=== PATIENT | female | born 1970 | race Caucasian/White ===

== ENCOUNTER → 2018-01-18 | Outpatient (CLI) | payer BC ==
[2018-01-18 07:06] LABS: Basophils % (A) 1 %; Eosinophils # (A) 0.1 k/uL (0-0.7); Eosinophils % (A) 4 %; HCT 41.3 % (34.0-46.0); HGB 13.7 gm/dL (11.4-16.0); Lymphocytes # (A) 1.3 k/uL (1.0-4.8); Lymphocytes % (A) 37 %; MCH 31.2 pg (25.0-35.0); MCHC 33.2 g/dL (31.0-37.0); MCV 94.1 fL (80.0-100.0); Mean Platelet Volume 7.6; Monocytes # (A) 0.2 k/uL (0-1.0); Monocytes % (A) 5 %; Neutrophils # (A) 1.7 k/uL (1.3-7.7); Neutrophils % (A) 51 %; Platelet Count 195 k/uL (150-450); RBC 4.39 m/uL (3.80-5.40); RDW 12.8 % (11.5-15.5); WBC 3.4 k/uL (3.8-10.6)
[2018-01-18 07:20] LABS: ALT 45 U/L (9-52); AST 31 U/L (14-36); Albumin 3.9 g/dL (3.5-5.0); Alkaline Phosphatase 51 U/L (38-126); Anion Gap 9 mmol/L; Blood Urea Nitrogen 14 mg/dL (7-17); Calcium 9.1 mg/dL (8.4-10.2); Carbon Dioxide 29 mmol/L (22-30); Chloride 103 mmol/L (98-107); Cholesterol 182 mg/dL (<200); Glucose 91 mg/dL (74-99); HDL Cholesterol 56 mg/dL (40-60); LDL Cholesterol,Calculated 114 mg/dL (0-99); Potassium 4.4 mmol/L (3.5-5.1); Sodium 141 mmol/L (137-145); Total Bilirubin 0.7 mg/dL (0.2-1.3); Total Protein 5.9 g/dL (6.3-8.2); Triglycerides 60 mg/dL (<150)
[2018-01-18 07:33] LABS: T4, Free (Free Thyroxine) 0.74 ng/dL (0.78-2.19)
[2018-01-18 11:59] LABS: Vitamin D 25 Hydroxy 56.7 ng/mL (30.0-100.0)
== END | disposition home or self-care (01) ==
LOC: LABWHC1 06:43
PROVIDERS: ATTEND Nurse Practitioner Family
DX: Z00.00 Encounter for general adult medical examination without abnormal findings (principal); F41.1 Generalized anxiety disorder
CPT/HCPCS: 36415; 80053; 80061; 82306; 82607; 84439; 84443; 85025

== ENCOUNTER → 2018-06-14 | Outpatient (CLI) | payer BC ==
--- NOTE | 2018-06-14 11:52 | MM ---
Reason for exam: screening (asymptomatic). Last mammogram was performed 1 year and 1 month ago. History: Family history of breast cancer in aunt at age 50. Physical Findings: A clinical breast exam by your physician is recommended on an annual basis and results should be correlated with mammographic findings. MG Screening Mammo w CAD Bilateral CC and MLO view(s) were taken. Prior study comparison: May 18, 2017, bilateral MG screening mammo w CAD. April 07, 2016, bilateral MG screening mammo w CAD. There are scattered fibroglandular densities. There is no discrete abnormality. No significant changes when compared with prior studies. ASSESSMENT: Negative, BI-RAD 1 RECOMMENDATION: Routine screening mammogram of both breasts in 1 year.
== END | disposition home or self-care (01) ==
LOC: RADMAMWWP 06:59
PROVIDERS: ATTEND Family Medicine
DX: Z12.31 Encounter for screening mammogram for malignant neoplasm of breast (principal)
CPT/HCPCS: 77067

== ENCOUNTER → 2018-08-17 | Outpatient (CLI) | payer BC ==
[2018-08-17 08:40] LABS: Basophils % (A) 1 %; Eosinophils # (A) 0.2 k/uL (0-0.7); Eosinophils % (A) 4 %; HCT 42.4 % (34.0-46.0); HGB 13.9 gm/dL (11.4-16.0); Lymphocytes # (A) 1.1 k/uL (1.0-4.8); Lymphocytes % (A) 25 %; MCH 31.4 pg (25.0-35.0); MCHC 32.8 g/dL (31.0-37.0); MCV 95.7 fL (80.0-100.0); Mean Platelet Volume 7.5; Monocytes # (A) 0.3 k/uL (0-1.0); Monocytes % (A) 8 %; Neutrophils # (A) 2.6 k/uL (1.3-7.7); Neutrophils % (A) 60 %; Platelet Count 167 k/uL (150-450); RBC 4.43 m/uL (3.80-5.40); RDW 12.9 % (11.5-15.5); WBC 4.3 k/uL (3.8-10.6)
[2018-08-17 16:30] LABS: Albumin 4.1 g/dL (3.80-4.90); Albumin/Globulin Ratio 2.41 (1.20-2.10); Anion Gap 6.4 mmol/L (4.00-12.00); Calcium 8.9 mg/dL (8.7-10.3); Carbon Dioxide 26.6 mmol/L (21.6-31.8); Globulin 1.7 g/dL (1.6-3.3); LDL Cholesterol,Calculated 93.8 mg/dL (0.0-131.0); Potassium 4.3 mmol/L (3.5-5.5); Total Bilirubin 0.4 mg/dL (0.3-1.2); Total Protein 5.8 g/dL (6.2-8.2); VLDL Calculation 13.2 mg/dL (5.00-40.00)
== END ==
LOC: LABWHC1 08:01
PROVIDERS: ATTEND Nurse Practitioner Family
DX: E78.5 Hyperlipidemia, unspecified (principal)
CPT/HCPCS: 36415; 80053; 80061; 85025

== ENCOUNTER → 2019-03-15 | Outpatient (CLI) | payer BC ==
[2019-03-15 08:39] LABS: Basophils % (A) 1 %; Eosinophils # (A) 0.2 k/uL (0-0.7); Eosinophils % (A) 4 %; HGB 13.3 gm/dL (11.4-16.0); Lymphocytes # (A) 1.3 k/uL (1.0-4.8); Lymphocytes % (A) 29 %; MCHC 32.5 g/dL (31.0-37.0); MCV 95.4 fL (80.0-100.0); Mean Platelet Volume 8.1; Monocytes # (A) 0.3 k/uL (0-1.0); Monocytes % (A) 6 %; Neutrophils # (A) 2.7 k/uL (1.3-7.7); Neutrophils % (A) 58 %; Platelet Count 213 k/uL (150-450); WBC 4.6 k/uL (3.8-10.6)
[2019-03-15 16:08] LABS: African American GFR (CKD) 101.8 (60.0-200.0); Albumin 4.1 g/dL (3.80-4.90); Albumin/Globulin Ratio 2.41 (1.60-3.17); Anion Gap 5.6 mmol/L (4.00-12.00); BUN/Creat Ratio 28.75 Ratio (12.00-20.00); Calcium 9.1 mg/dL (8.7-10.3); Carbon Dioxide 28.4 mmol/L (21.6-31.8); Globulin 1.7 g/dL (1.6-3.3); LDL Cholesterol,Calculated 140.2 mg/dL (0.0-131.0); Potassium 4.4 mmol/L (3.5-5.5); Total Bilirubin 0.7 mg/dL (0.3-1.2); Total Protein 5.8 g/dL (6.2-8.2); VLDL Calculation 16.8 mg/dL (5.00-40.00)
== END | disposition home or self-care (01) ==
LOC: LABWHC1 08:11
PROVIDERS: ATTEND Nurse Practitioner Family
DX: Z00.00 Encounter for general adult medical examination without abnormal findings (principal)
CPT/HCPCS: 36415; 80053; 80061; 82306; 84443; 85025

== ENCOUNTER 2019-03-31 18:10 | Observation (INO) | payer BC ==
[2019-03-31] MEDS ORDERED: ASPIRIN 81 MG PO STA (18:38)
[2019-03-31] MEDS ORDERED: NITROGLYCERIN SL TABS 0.4 MG TAB SUBLINGUAL STA (18:38)
[2019-03-31 18:44] LABS: Basophils % (A) 1 %; Eosinophils # (A) 0.3 k/uL (0-0.7); Eosinophils % (A) 4 %; HGB 13.5 gm/dL (11.4-16.0); Lymphocytes # (A) 1.9 k/uL (1.0-4.8); Lymphocytes % (A) 28 %; MCH 32.1 pg (25.0-35.0); MCHC 33.8 g/dL (31.0-37.0); MCV 94.9 fL (80.0-100.0); Mean Platelet Volume 7.5; Monocytes # (A) 0.4 k/uL (0-1.0); Monocytes % (A) 6 %; Neutrophils # (A) 3.9 k/uL (1.3-7.7); Neutrophils % (A) 58 %; Platelet Count 215 k/uL (150-450); RBC 4.22 m/uL (3.80-5.40); RDW 13.3 % (11.5-15.5); WBC 6.6 k/uL (3.8-10.6)
--- NOTE | 2019-03-31 18:44 | ED ---
Chest Pain HPI - General Chief Complaint: Chest Pain Stated Complaint: Chest pain going down Lt arm Time Seen by Provider: 03/31/19 18:27 Source: patient, RN notes reviewed Mode of arrival: wheelchair Limitations: no limitations - History of Present Illness Initial Comments: This is a 48-year-old female with no personal history of heart disease who is a former smoker who quit about 10 years ago who states she had the onset all work this morning of midsternal and left-sided chest discomfort that felt like a burning and tugging type sensation with radiation down her left arm. She states is been intermittent throughout the day. She states it is worse is about 5/10 in severity. No associated nausea shortness of breath or other symptoms. She denies any recent trauma or heavy lifting cough fevers chills nausea vomiting sweats. She states is no family history of any early heart disease. She did note her blood pressure seems be higher in the emergency department and her normal 120 systolic max. She did take Aleve this morning without any relief MD Complaint: chest pain - Related Data Home Medications Medication Instructions Recorded Confirmed Cyanocobalamin (Vitamin B-12) 1,000 mcg PO DAILY 03/31/19 03/31/19 [Vitamin B-12] FLUoxetine HCL [PROzac] 20 mg PO DAILY 03/31/19 03/31/19 Fish Oil/Dha/Epa [Fish Oil 1,200 1 cap PO DAILY 03/31/19 03/31/19 mg Fish Oil] Loratadine 10 mg PO DAILY 03/31/19 03/31/19 Multivitamins, Thera [Multivitamin 1 tab PO DAILY 03/31/19 03/31/19 (formulary)] Naproxen Sodium [Aleve] 440 mg PO Q12HR PRN 03/31/19 03/31/19 Allergies Allergy/AdvReac Type Severity Reaction Status Date / Time sulfamethoxazole Allergy Unknown Verified 03/31/19 18:53 [From Bactrim] trimethoprim [From Bactrim] Allergy Unknown Verified 03/31/19 18:53 Review of Systems ROS Statement: Those systems with pertinent positive or pertinent negative responses have been documented in the HPI. ROS Other: All systems not noted in ROS Statement are negative. EKG Findings - EKG Results: EKG: interpreted by AMADEO, sinus rhythm (Normal sinus rhythm a 78 appear interval 120 QRS duration 74 QT since QTC 370/[address]-T wave changes.) Past Medical History Past Medical History: No Reported History History of Any Multi-Drug Resistant Organisms: None Reported Past Surgical History: Cholecystectomy, Orthopedic Surgery, Tubal Ligation, Uterine Ablation Past Psychological History: Anxiety Smoking Status: Never smoker Past Alcohol Use History: Occasional Past Drug Use History: None Reported General Exam - General Exam Comments Initial Comments: This is a well-developed well-nourished awake alert oriented 3 female Limitations: no limitations General appearance: alert, in no apparent distress Head exam: Present: atraumatic, normocephalic, normal inspection Eye exam: Present: normal appearance, PERRL, EOMI. Absent: scleral icterus, conjunctival injection, periorbital swelling ENT exam: Present: normal exam, mucous membranes moist Neck exam: Present: normal inspection. Absent: tenderness, meningismus, lymphadenopathy Respiratory exam: Present: normal lung sounds bilaterally, chest wall tenderness (Is palpation of left costosternal margin this is somewhat different than the pain she was experiencing.). Absent: respiratory distress, wheezes, rales, rhonchi, stridor Cardiovascular Exam: Present: regular rate, normal rhythm, normal heart sounds. Absent: systolic murmur, diastolic murmur, rubs, gallop, clicks GI/Abdominal exam: Present: soft, normal bowel sounds. Absent: distended, tenderness, guarding, rebound, rigid Extremities exam: Present: normal inspection, full ROM, normal capillary refill. Absent: tenderness, pedal edema, joint swelling, calf tenderness Back exam: Present: normal inspection Neurological exam: Present: alert, oriented X3, CN II-XII intact Psychiatric exam: Present: normal affect, normal mood Skin exam: Present: warm, dry, intact, normal color. Absent: rash Course Vital Signs 03/31/19 03/31/19 03/31/19 18:15 18:29 19:00 Temperature 98.2 F Pulse Rate 80 80 79 Respiratory 18 18 18 Rate Blood Pressure 139/89 149/97 132/85 O2 Sat by Pulse 98 100 100 Oximetry - Reevaluation(s) Reevaluation #1: 03/31/19 21:41 She is states she has some relief after nitro was given she'll be admitted I did discuss this with her and with Dr. Jacobson Chest Pain MDM - [facility] I did review the imaging and report no acute findings. Critical Care Time Critical Care Time: Yes Critical Care Time: 31 minutes of critical care time which includes initial presentation with history physical labs x-rays reevaluation patient to responsive therapy discuss with the main physician discussed with the patient admission orders documentation the above Disposition Clinical Impression: Unstable angina pectoris, Chest pain Disposition: ADMITTED IP TO THIS HOSP Condition: Fair Referrals: Nirmal Polk MD [Primary Care Provider] - 1-2 days
[2019-03-31 18:52] LABS: Albumin 4.2 g/dL (3.5-5.0); Calcium 9.1 mg/dL (8.4-10.2); Magnesium 1.9 mg/dL (1.6-2.3); Potassium 3.7 mmol/L (3.5-5.1); Total Bilirubin 0.8 mg/dL (0.2-1.3); Total Protein 6.7 g/dL (6.3-8.2)
[2019-03-31 18:57] LABS: D-Dimer 0.28 mg/L FEU (<0.60); INR 0.9 (<1.2); Partial Thromboplastin Time 24.3 sec (22.0-30.0); Prothrombin Time 9.6 sec (9.0-12.0)
--- NOTE | 2019-03-31 20:05 | XR ---
EXAMINATION: XR chest 2V DATE AND TIME: 03/31/2019 6:55 PM CLINICAL INDICATION: PHH; Chest Pain TECHNIQUE: Departmental protocol COMPARISON: None FINDINGS: The lungs are clear. The pleural spaces are negative. The cardiac silhouette is not enlarged. The remainder of the mediastinal silhouette is unremarkable. The skeletal structures and soft tissues are negative for acute findings. IMPRESSION: NO ACUTE PROCESS.
[2019-03-31] MEDS ORDERED: HEPARIN SODIUM,PORCINE 5,000 UNIT/ML 1 ML VIAL IV ONE (21:43)
[2019-03-31] MEDS ORDERED: NITROGLYCERIN SL TABS 0.4 MG TAB SUBLINGUAL PRN (21:43)
[2019-03-31] MEDS ORDERED: SODIUM CHLORIDE 0.9% 1,000 ML IV SCH (21:45)
[2019-03-31] MEDS ORDERED: HEPARIN SOD,PORK IN 0.45% NACL 25,000 UNIT in 0.45% NACL 1 250ML.BAG IV SCH (21:45)
[2019-03-31] MEDS ORDERED: HEPARIN SODIUM,PORCINE 5,000 UNIT/ML 1 ML VIAL IV PRN (22:47)
[2019-04-01] MEDS: NITROGLYCERIN OINT 1 INCH/GM PACKET TOPICAL SCH ×2 (00:07→05:46)
[2019-04-01 06:01] LABS: Cholesterol 201 mg/dL (<200); HDL Cholesterol 63 mg/dL (40-60); LDL Cholesterol,Calculated 118 mg/dL (0-99); Triglycerides 99 mg/dL (<150)
[2019-04-01 07:06] VITALS: PULSE 76; RESP 16; TEMP 97.9
[2019-04-01] MEDS ORDERED: MULTIVITAMINS, THERA 1 EACH TAB PO SCH (09:00)
[2019-04-01] MEDS ORDERED: CYANOCOBALAMIN 500 MCG TAB PO SCH (09:00)
[2019-04-01] MEDS ORDERED: ASPIRIN 325 MG TAB PO SCH (09:00)
[2019-04-01] MEDS ORDERED: FLUoxetine HCL 20 MG CAP PO SCH (09:00)
[2019-04-01] MEDS ORDERED: LORATADINE 10 MG TAB PO SCH (09:00)
[2019-04-01] MEDS ORDERED: NON-FORMULARY DRUG (Fish Oil/Dha/Epa [Fish Oil 1,200 Mg Fish Oil] 1 CAP) PO SCH (09:00)
--- NOTE | 2019-04-01 11:20 | P.CRDCN ---
History of Present Illness History of present illness: This is Aspen Holley PA-C dictating a consult on this patient The patient was interviewed and examined by me as well as by Dr. Fonseca Case discussed with Dr. Fonseca and he agrees with the plan of care IMPRESSION / ASSESSMENT: Atypical chest discomfort, troponins negative, no ST changes on EKG Dyslipidemia, ten-year risk score is 0.8% Former smoker, quit 10 years ago Elevated blood pressure upon admission, blood pressure stable since PLAN: Stop heparin, aspirin, and Nitropaste Check hemoglobin A1c Encouraged patient to get up and walk around in the hallways see if discomfort recurs 2-D echo and Doppler studies to assess cardiac structure and function Home blood pressure monitoring Low-sodium diet Follow-up outpatient for further cardiac workup HPI Patient is a 48-year-old female with no significant past medical history who presented with complaints of chest discomfort. He was at home getting ready for work when she experienced a sudden onset of left sided chest pressure that radiated up her neck and down her left arm. She denied associated shortness of breath, nausea, or diaphoresis. The discomfort was constant and non-positional or exertional. She has never had any discomfort like this before. She is very active and exercises 3-4 times a week. Denies any shortness of breath or chest pain with exercise. She works in an office. The discomfort continued when she went to work so she came to the emergency department. Upon presentation to the emergency department her blood pressure was 139/89, pulse was 80, respirations were 18 and oxygen saturation was 98% on room air. Troponins were negative 3. She was started on Nitropaste and heparin. Her discomfort has improved somewhat today. Denies any shortness of breath, lightheadedness, dizziness, shortness of breath. She smoked on and off for 20 years and quit 10 years ago Denies any family history of heart disease or blood clots Denies any personal history of hypertension, diabetes, or dyslipidemia ROS: No fevers, chills or rigors, no cough, phlegm or expectoration, no nausea, vomiting or diarrhea, no hematuria, dysuria, Positive for shoulder pain no strokes or seizures, no skin lesions. EXAMINATION: Temperature 9 7.9F, pulse 76, respirations 16, blood pressure 113/65, oxygen saturation 97% on room air Patient seen and examined resting comfortably in bed, no acute distress Lungs clear to auscultation bilaterally, no wheezing, rhonchi or crackles appreciated Slight tenderness to palpation on the left side of the chest, no tenderness in the neck or shoulders Heart is regular, normal S1 and S2, no murmurs appreciated No lower extremity edema noted Abdomen soft, nontender REVIEW OF LABS, ECG & MEDICAL DATA WBC 6.6, hemoglobin 13.5, sodium 137, potassium 3.7, creatinine 0.92, magnesium 1.9 Troponins negative 3 Total cholesterol 201, triglycerides 99, LDL 118, HDL 63 Past Medical History Past Medical History: No Reported History History of Any Multi-Drug Resistant Organisms: None Reported Past Surgical History: Cholecystectomy, Orthopedic Surgery, Tubal Ligation, Uterine Ablation Additional Past Surgical History / Comment(s): left knee surgery Past Anesthesia/Blood Transfusion Reactions: No Reported Reaction Past Psychological History: Anxiety Smoking Status: Former smoker Past Alcohol Use History: Occasional Past Drug Use History: None Reported - Past Family History Father Family Medical History: Hyperlipidemia Mother Family Medical History: Hyperlipidemia, Hypertension Sister(s) Family Medical History: No Reported History Brother(s) Family Medical History: No Reported History Daughter(s) Family Medical History: No Reported History Medications and Allergies Home Medications Medication Instructions Recorded Confirmed Type Cholecalciferol (Vitamin D3) 1 unit PO DAILY 03/31/19 03/31/19 History [Vitamin D3] Cyanocobalamin (Vitamin B-12) 1,000 mcg PO DAILY 03/31/19 03/31/19 History [Vitamin B-12] FLUoxetine HCL [PROzac] 20 mg PO DAILY 03/31/19 03/31/19 History Fish Oil/Dha/Epa [Fish Oil 1,200 1 cap PO DAILY 03/31/19 03/31/19 History mg Fish Oil] Loratadine 10 mg PO DAILY 03/31/19 03/31/19 History Multivitamins, Thera [Multivitamin 1 tab PO DAILY 03/31/19 03/31/19 History (formulary)] Naproxen Sodium [Aleve] 440 mg PO Q12HR PRN 03/31/19 03/31/19 History Allergies Allergy/AdvReac Type Severity Reaction Status Date / Time sulfamethoxazole Allergy Unknown Verified 03/31/19 23:34 [From Bactrim] trimethoprim [From Bactrim] Allergy Unknown Verified 03/31/19 23:34 Physical Exam Vitals: Vital Signs Temp Pulse Pulse Resp BP BP Pulse Ox 04/01/19 07:05 97.9 F 76 16 113/65 97 04/01/19 04:00 98.1 F 81 18 126/68 97 03/31/19 23:53 97.5 F L 75 18 130/84 100 03/31/19 22:48 98.2 F 78 18 124/84 99 03/31/19 21:58 78 18 124/84 99 03/31/19 19:00 79 18 132/85 100 03/31/19 18:29 80 18 149/97 100 03/31/19 18:15 98.2 F 80 18 139/89 98 Intake and Output 03/31/19 04/01/19 04/01/19 22:59 06:59 14:59 Other: Voiding Method Toilet # Voids 1 Weight 68.039 kg Results 03/31/19 18:25 03/31/19 18:25 Cardiac Enzymes 03/31/19 03/31/19 04/01/19 Range/Units 18:25 18:25 00:42 AST 31 (14-36) U/L Troponin I <0.012 <0.012 (0.000-0.034) ng/mL 04/01/19 Range/Units 05:09 AST (14-36) U/L Troponin I <0.012 (0.000-0.034) ng/mL Coagulation 03/31/19 04/01/19 Range/Units 18:25 05:09 PT 9.6 (9.0-12.0) sec APTT 24.3 61.3 H (22.0-30.0) sec Lipids 04/01/19 Range/Units 05:09 Triglycerides 99 (<150) mg/dL Cholesterol 201 H (<200) mg/dL HDL Cholesterol 63 H (40-60) mg/dL CBC 03/31/19 Range/Units 18:25 WBC 6.6 (3.8-10.6) k/uL RBC 4.22 (3.80-5.40) m/uL Hgb 13.5 (11.4-16.0) gm/dL Hct 40.0 (34.0-46.0) % Plt Count 215 (150-450) k/uL Comprehensive Metabolic Panel 03/31/19 Range/Units 18:25 Sodium 137 (137-145) mmol/L Potassium 3.7 (3.5-5.1) mmol/L Chloride 105 (98-107) mmol/L Carbon Dioxide 24 (22-30) mmol/L BUN 21 H (7-17) mg/dL Creatinine 0.92 (0.52-1.04) mg/dL Glucose 91 (74-99) mg/dL Calcium 9.1 (8.4-10.2) mg/dL AST 31 (14-36) U/L ALT 29 (9-52) U/L Alkaline Phosphatase 62 (38-126) U/L Total Protein 6.7 (6.3-8.2) g/dL Albumin 4.2 (3.5-5.0) g/dL Current Medications Generic Name Dose Route Start Last Admin Trade Name Freq PRN Reason Stop Dose Admin Aspirin 325 mg 04/01/19 09:00 04/01/19 08:48 Aspirin PO 325 mg DAILY RJ Administration Cyanocobalamin 1,000 mcg 04/01/19 09:00 04/01/19 08:48 Vitamin B-12 PO 1,000 mcg DAILY RJ Administration Fluoxetine HCl 20 mg 04/01/19 09:00 04/01/19 08:48 Prozac PO 20 mg DAILY RJ Administration Heparin Sodium (Porcine) 0 unit 03/31/19 22:47 Heparin IV PER PROTOCOL PRN Low PTT Protocol Sodium Chloride 1,000 mls @ 20 mls/hr 03/31/19 21:45 03/31/19 22:11 Saline 0.9% IV 20 mls/hr .Q24H RJ Administration Loratadine 10 mg 04/01/19 09:00 04/01/19 08:48 Claritin PO 10 mg DAILY RJ Administration Multivitamins 1 each 04/01/19 09:00 04/01/19 08:48 Theragran PO 1 each DAILY RJ Administration Nitroglycerin 0.4 mg 03/31/19 21:43 Nitrostat SUBLINGUAL Q5M PRN Chest Pain Intake and Output 03/31/19 04/01/19 04/01/19 22:59 06:59 14:59 Other: Voiding Method Toilet # Voids 1 Weight 68.039 kg 03/31/19 18:25 03/31/19 18:25
[2019-04-01 11:29] VITALS: BP 132/79
--- NOTE | 2019-04-01 20:59 | P.HPIM ---
History of Present Illness H&P Date: 04/01/19 Chief Complaint: Chest pain History of presenting complaint: This is a very pleasant 48-year-old patient of Dr. downing from [place]. Patient's extreme rather good health. Yesterday developed left anterior chest wall pain going down the left arm. [place] a bit leg cramping like sensation. He remained most of the day. No relation to activity. There is no associated s hortness of breath, dizziness, lightheadedness, perspiration or nausea. Decided to come in to rule out a cardiac cause. No coronary family history. Serial cardiac enzymes ordered. Patient's at the bedside. Review of systems: GEN.: None EYES: None HEENT: None NECK: None RESPIRATORY: None CARDIOVASCULAR: As above GASTROINTESTINAL: None GENITOURINARY: None MUSCULOSKELETAL: None LYMPHATICS: None HEMATOLOGICAL: None PSYCHIATRY: Occasional anxiety NEUROLOGICAL: None Past medical history: Unremarkable, anxiety occasional Social history: . Does a desk job. Does not smoke or drink alcohol. Family history: Hyperlipidemia Physical examination: VITAL SIGNS: 97.9, 76, 16, 130 x 65, 97% room air GENERAL: BMI 25.7, sitting up in bed, comfortable. EYES: Pupils equal. Conjunctiva normal. HEENT: External appearance of nose and ears normal, oral cavity grossly normal. NECK: JVD not raised; masses not palpable. HEART: First and second heart sounds are normal; no edema. LUNGS: Respiratory rate normal; clear to auscultation. ABDOMEN: Soft, nontender, liver spleen not palpable, no masses palpable. PSYCH: Alert and oriented x3; mood and affect normal. NEUROLOGICAL: Cranial nerves grossly intact; no facial asymmetry, power and sensation grossly intact. LYMPHATICS: No lymph nodes palpable in the axilla and neck INVESTIGATIONS, reviewed in the clinical context: White count 6.6 hemoglobin 13.5 platelets 215 potassium 3.7 creatinine 0.9 to Troponin I 3 negative LDL 118 EKG tracing personally reviewed by me shows normal sinus rhythm Chest x-ray film personally reviewed by me, shows lung gaspar to be clear Assessment: -Left anterior chest wall pain, lasting for the whole day. He is to be rather atypical for coronary presentation with no exacerbating or relieving factors. -Anxiety not otherwise specified Plan: Serial cardiac enzymes were done. Cardiac cardiology was consulted. Care was discussed with the patient and at the bedside. 2-D echo was ordered by cardiology Past Medical History Past Medical History: No Reported History History of Any Multi-Drug Resistant Organisms: None Reported Past Surgical History: Cholecystectomy, Orthopedic Surgery, Tubal Ligation, Uterine Ablation Additional Past Surgical History / Comment(s): left knee surgery Past Anesthesia/Blood Transfusion Reactions: No Reported Reaction Past Psychological History: Anxiety Smoking Status: Former smoker Past Alcohol Use History: Occasional Past Drug Use History: None Reported - Past Family History Father Family Medical History: Hyperlipidemia Mother Family Medical History: Hyperlipidemia, Hypertension Sister(s) Family Medical History: No Reported History Brother(s) Family Medical History: No Reported History Daughter(s) Family Medical History: No Reported History Medications and Allergies Home Medications Medication Instructions Recorded Confirmed Type Cholecalciferol (Vitamin D3) 1 unit PO DAILY 03/31/19 03/31/19 History [Vitamin D3] Cyanocobalamin (Vitamin B-12) 1,000 mcg PO DAILY 03/31/19 03/31/19 History [Vitamin B-12] FLUoxetine HCL [PROzac] 20 mg PO DAILY 03/31/19 03/31/19 History Fish Oil/Dha/Epa [Fish Oil 1,200 1 cap PO DAILY 03/31/19 03/31/19 History mg Fish Oil] Loratadine 10 mg PO DAILY 03/31/19 03/31/19 History Multivitamins, Thera [Multivitamin 1 tab PO DAILY 03/31/19 03/31/19 History (formulary)] Naproxen Sodium [Aleve] 440 mg PO Q12HR PRN 03/31/19 03/31/19 History Allergies Allergy/AdvReac Type Severity Reaction Status Date / Time sulfamethoxazole Allergy Unknown Verified 03/31/19 23:34 [From Bactrim] trimethoprim [From Bactrim] Allergy Unknown Verified 03/31/19 23:34 Physical Exam Vitals: Vital Signs Temp Pulse Pulse Resp BP BP Pulse Ox 04/01/19 11:27 97.9 F 76 16 132/79 100 04/01/19 07:05 97.9 F 76 16 113/65 97 04/01/19 04:00 98.1 F 81 18 126/68 97 03/31/19 23:53 97.5 F L 75 18 130/84 100 03/31/19 22:48 98.2 F 78 18 124/84 99 03/31/19 21:58 78 18 124/84 99 03/31/19 19:00 79 18 132/85 100 03/31/19 18:29 80 18 149/97 100 03/31/19 18:15 98.2 F 80 18 139/89 98 Intake and Output 03/31/19 04/01/19 04/01/19 22:59 06:59 14:59 Intake Total 600 Balance 600 Intake: Oral 600 Other: Voiding Method Toilet Toilet # Voids 1 2 Weight 68.039 kg Results CBC & Chem 7: 03/31/19 18:25 03/31/19 18:25 Labs: Abnormal Lab Results - Last 24 Hours (Table) 03/31/19 04/01/19 04/01/19 Range/Units 18:25 05:09 05:09 APTT 61.3 H (22.0-30.0) sec BUN 21 H (7-17) mg/dL Cholesterol 201 H (<200) mg/dL LDL Cholesterol, Calc 118 H (0-99) mg/dL HDL Cholesterol 63 H (40-60) mg/dL Thrombosis Risk Factor Assmnt - Choose All That Apply Any of the Below Risk Factors Present?: Yes Each Factor Represents 1 point: Age 41-60 years Other Risk Factors: No Other congenital or acquired thrombophilia - If yes, enter type in comment: No Thrombosis Risk Factor Assessment Total Risk Factor Score: 1 Thrombosis Risk Factor Assessment Level: Low Risk
--- NOTE | 2019-04-01 21:01 | P.DS ---
Providers Date of admission: 03/31/19 21:43 Expected date of discharge: 04/01/19 Attending physician: Edmar Jacobson Consults: 03/31/19 21:43 Consult Physician Urgent Consulting Provider: Rodo Rosales Consult Reason/Comments: Chest pain Do you want consulting provider notified?: Yes Primary care physician: Nirmal Polk [facility] Course: Hospital course: This is a very pleasant 48-year-old patient of Dr. polk from [place]. Patient's extreme rather good health. Yesterday developed left anterior chest wall pain going down the left arm. [place] a bit leg cramping like sensation. He remained most of the day. No relation to activity. There is no associated shortness of breath, dizziness, lightheadedness, perspiration or nausea. Decided to come in to rule out a cardiac cause. No coronary family history. Serial cardiac enzymes ordered. Patient's at the bedside. Patient was seen by cardiology. [place] to be noncardiac. Troponins were negative. Patient told to keep a close and a blood pressure.. As an outpatient. Consultation: Dr. Deon Sanders from cardiology Physical examination: VITAL SIGNS: 97.9, 76, 16, 132 x 79 GENERAL: BMI 25.7, sitting up in bed, comfortable. EYES: Pupils equal. Conjunctiva normal. HEENT: External appearance of nose and ears normal, oral cavity grossly normal. NECK: JVD not raised; masses not palpable. HEART: First and second heart sounds are normal; no edema. LUNGS: Respiratory rate normal; clear to auscultation. ABDOMEN: Soft, nontender, liver spleen not palpable, no masses palpable. PSYCH: Alert and oriented x3; mood and affect normal. INVESTIGATIONS, reviewed in the clinical context: White count 6.6 hemoglobin 13.5 platelets 215 potassium 3.7 creatinine 0.9 to Troponin I 3 negative LDL 118 EKG tracing personally reviewed by me shows normal sinus rhythm Chest x-ray film personally reviewed by me, shows lung gaspar to be clear Discharge diagnosis: -Left anterior chest wall pain, lasting for the whole day. He is to be rather atypical for coronary presentation with no exacerbating or relieving factors. Possibly musculoskeletal -Anxiety not otherwise specified Disposition: Home Patient Condition at Discharge: Stable Plan - Discharge Summary Discharge Rx Participant: No New Discharge Prescriptions: Continue Fish Oil/Dha/Epa [Fish Oil 1,200 mg Fish Oil] 1 cap PO DAILY Naproxen Sodium [Aleve] 440 mg PO Q12HR PRN PRN Reason: Pain Multivitamins, Thera [Multivitamin (formulary)] 1 tab PO DAILY Loratadine 10 mg PO DAILY FLUoxetine HCL [PROzac] 20 mg PO DAILY Cyanocobalamin (Vitamin B-12) [Vitamin B-12] 1,000 mcg PO DAILY Cholecalciferol (Vitamin D3) [Vitamin D3] 1 unit PO DAILY Discharge Medication List Cholecalciferol (Vitamin D3) [Vitamin D3] 1 unit PO DAILY 03/31/19 [History] Cyanocobalamin (Vitamin B-12) [Vitamin B-12] 1,000 mcg PO DAILY 03/31/19 [History] FLUoxetine HCL [PROzac] 20 mg PO DAILY 03/31/19 [History] Fish Oil/Dha/Epa [Fish Oil 1,200 mg Fish Oil] 1 cap PO DAILY 03/31/19 [History] Loratadine 10 mg PO DAILY 03/31/19 [History] Multivitamins, Thera [Multivitamin (formulary)] 1 tab PO DAILY 03/31/19 [History] Naproxen Sodium [Aleve] 440 mg PO Q12HR PRN 03/31/19 [History] Follow up Appointment(s)/Referral(s): Lawrence Fonseca MD [STAFF PHYSICIAN] - 04/11/19 2:00 pm (Follow-up with Dr. Fonseca/Aspen Holley/Deborah Alfredo, March 2 PM. Stress echo Apr 17 at 10:15.) Nirmal Polk MD [Primary Care Provider] - 1-2 days Patient Instructions/Handouts: Chest Pain (DC) Activity/Diet/Wound Care/Special Instructions: daily BP check in am ...keep log Discharge Disposition: HOME SELF-CARE
--- NOTE | 2019-04-02 10:04 | ECHOF ---
Referral Reason:chest pain MEASUREMENTS -------- HEIGHT: 162.6 cm WEIGHT: 68.0 kg BP: 132/79 RVIDd: 2.1 cm (< 3.3) IVSd: 0.8 cm (0.6 - 1.1) LVIDd: 4.2 cm (3.9 - 5.3) LVPWd: 1.0 cm (0.6 - 1.1) IVSs: 1.2 cm LVIDs: 3.1 cm LVPWs: 1.0 cm LA Diam: 2.7 cm (2.7 - 3.8) LAESV Index (A-L): 24.34 ml/m Ao Diam: 3.2 cm (2.0 - 3.7) AV Cusp: 2.1 cm (1.5 - 2.6) LA Diam: 3.6 cm (2.7 - 3.8) MV EXCURSION: 12.690 mm (> 18.000) MV EF SLOPE: 101 mm/s (70 - 150) EPSS: 0.4 cm MV E Demetrius: 0.70 m/s MV DecT: 202 ms MV A Demetrius: 0.76 m/s MV E/A Ratio: 0.92 RAP: 5.00 mmHg RVSP: 27.55 mmHg FINDINGS -------- Sinus rhythm. This was a technically good study. LV size, wall thickness and systolic function are normal, with an EF greater than 55%. The left nabil tricular size is normal. The right ventricle is normal in size and function. The left atrial size is normal. Normal LA size by volume 22+/-6 ml/m2. The right atrial size is normal. The aortic valve is trileaflet, and appears structurally normal. No aortic stenosis or regurgitation. Mild mitral regurgitation is present. Mild tricuspid regurgitation present. There is no evidence of pulmonary hypertension. The right v entricular systolic pressure, as measured by Doppler, is 27.55mmHg. There is no pulmonic regurgitation present. The aortic root size is normal. Normal inferior vena cava with normal inspiratory collapse consistent with estimated right atrial pre ssure of 5 mmHg. There is no pericardial effusion. CONCLUSIONS -------- 1. LV size, wall thickness and systolic function are normal, with an EF greater than 55%. 2. The left ventricular size is normal. 3. The right ventricle is normal in size and function. 4. The left atrial size is normal. 5. Normal LA size by volume 22+/-6 ml/m2. 6. The right atrial size is normal. 7. The aortic valve is trileaflet, and appears structurally normal. No aortic stenosis or regurgitati on. 8. Mild mitral regurgitation is present. 9. Mild tricuspid regurgitation present. 10. There is no evidence of pulmonary hypertension. 11. The right ventricular systolic pressure, as measured by Doppler, is 27.55mmHg. 12. There is no pulmonic regurgitation present. 13. The aortic root size is normal. 14. Normal inferior vena cava with normal inspiratory collapse consistent with estimated right atrial pressure of 5 mmHg. 15. There is no pericardial effusion. BAG WASHER: Nneka Gaytan RDCS
== END 2019-04-01 17:04 | disposition home or self-care (01) ==
LOC: EC 18:10 → 1SOBS 21:43
PROVIDERS: ADMIT Hospitalist; ATTEND Hospitalist
DX: R07.89 Other chest pain (principal); R03.0 Elevated blood-pressure reading, without diagnosis of hypertension; F41.9 Anxiety disorder, unspecified; E78.5 Hyperlipidemia, unspecified; Z90.49 Acquired absence of other specified parts of digestive tract; Z87.891 Personal history of nicotine dependence; Z79.899 Other long term (current) drug therapy; Z88.2 Allergy status to sulfonamides; Z82.49 Family history of ischemic heart disease and other diseases of the circulatory system
CPT/HCPCS: 96374; 99291; 36415; 93005; 93306; 85379; 83880; 80061; 80053; 83735; 84484 ×2; 85025; 85610; 85730 ×2; 83036; 71046; G0378 ×2; J1644 ×2

== ENCOUNTER → 2019-05-08 | Outpatient (CLI) | payer BC ==
[2019-05-08 17:35] LABS: African American GFR (CKD) >90 (>60 ml/min/1.73 sqM); Anion Gap 7 mmol/L; Blood Urea Nitrogen 24 mg/dL (7-17); Carbon Dioxide 30 mmol/L (22-30); Chloride 101 mmol/L (98-107); Sodium 138 mmol/L (137-145)
[2019-05-08 22:13] LABS: HCT 39.9 % (34.0-46.0); HGB 13.8 gm/dL (11.4-16.0); MCH 33.1 pg (25.0-35.0); MCHC 34.6 g/dL (31.0-37.0); MCV 95.9 fL (80.0-100.0); Platelet Count 199 k/uL (150-450); RBC 4.16 m/uL (3.80-5.40); RDW 12.9 % (11.5-15.5); WBC 5.8 k/uL (3.8-10.6)
== END | disposition home or self-care (01) ==
LOC: LABWHC1 16:44
PROVIDERS: ATTEND Internal Medicine Interventional Cardiology
DX: Z01.812 Encounter for preprocedural laboratory examination (principal); R07.9 Chest pain, unspecified
CPT/HCPCS: 80051; 82565; 84520; 85027

== ENCOUNTER → 2019-05-12 | Day surgery (SDC) | payer BC ==
[2019-05-08 10:34] VITALS: BMI 26.6
[~2019-05-12] MED LIST: ALPRAZolam 0.25 MG TAB PO PRN; ALPRAZolam 0.5 MG TAB PO PRN; ASPIRIN 325 MG TAB PO STA; ATORVASTATIN 80 MG TAB PO STA; HEPARIN SODIUM 1,000 UN/ML (10ML VL) IV ONE; IOPAMIDOL-370 100ML BTL INJ ONE; LIDOCAINE 1% INJ 10MG/ML (20 ML MDV) SQ ONE; MIDAZOLAM (PF) 2 MG/2 ML VIAL IVP ONE; NITROGLYCERIN SL TABS 0.4 MG TAB SUBLINGUAL PRN; RX INFO: IV CONTRAST WAS GIVEN 1 EACH MISC MISCELLANE PRN; SODIUM CHLORIDE 0.9% 1,000 ML IV SCH; SODIUM CHLORIDE 0.9% 1,000 ML in EMPTY BAG 1 BAG IV ONE; VERAPAMIL SYRINGE (5 MG/10 ML) INTRAARTER ONE
[2019-05-12 09:13] VITALS: RESP 18; TEMP 98.4
--- NOTE | 2019-05-12 10:30 | P.PCN ---
Date of Procedure: 05/12/19 Operative Findings: CARDIAC CATHETERIZATION PERFORMING PHYSICIAN: Rodo Rosales MD, RPVI PROCEDURE PERFORMED: 1. Selective right and left coronary angiogram 2. Left heart catheterization INDICATION: This is a pleasant 48-year-old female patient with history of hypertension and dyslipidemia who was experiencing chest discomfort and underwent a stress test came in to be abnormal. Because of that a heart catheterization was advised. COMPLICATION: None APPROACH: Right radial artery LEVEL OF SEDATION: Moderate sedation length of 11 minutes PROCEDURE DESCRIPTION: After obtaining an informed consent, the patient was brought to cardiac labor relations consultant. Local anesthesia was performed using lidocaine subcutaneously. The right radial artery was cannulated using Seldinger technique, the guidewire passed easily, following that we advanced a 5-Niuean sheath dilator assembly, the wire and dilator were removed and sheath was flushed. Following that, 2 mg of verapamil along with 5000 unit heparin were given. Selective right and left coronary angiogram using a 6-Niuean JR4 and JL 3.5 catheters. The procedure was completed there was no complication. SELECTIVE CORONARY ANGIOGRAM: The right coronary artery: Is a large caliber vessel and a dominant vessel. Its angiographically normal. It bifurcates distally into PDA and PLV branches both appears to be angio graphically normal. Left main: His angiographically normal. Bifurcates into left circumflex and left anterior descending artery The left circumflex: Is a large caliber vessel and nondominant vessel. The left circumflex is angiographically normal. The left anterior descending artery: Is angiographically normal. It gives rises into a small diagonal branch which seems to be angiographically normal. CONCLUSION: #1 normal coronary angiogram POSTPROCEDURE MANAGEMENT: Medical treatment Follow-up with the patient
[2019-05-12 13:39] VITALS: BP 100/62; PULSE 68
== END ==
LOC: CATHCVL 08:47
PROVIDERS: ATTEND Internal Medicine Interventional Cardiology
DX: I20.0 Unstable angina (principal); I10 Essential (primary) hypertension; E78.5 Hyperlipidemia, unspecified; R73.03 Prediabetes; Z79.899 Other long term (current) drug therapy; Z87.891 Personal history of nicotine dependence; Z79.1 Long term (current) use of non-steroidal anti-inflammatories (NSAID); Z88.2 Allergy status to sulfonamides
CPT/HCPCS: 93454; 81025; C1769; C1894; J2001; J1644; Q9967; J2250

== ENCOUNTER → 2019-06-18 | Outpatient (CLI) | payer BC ==
[2019-06-18 08:18] LABS: Basophils % (A) 1 %; Eosinophils # (A) 0.1 k/uL (0-0.7); Eosinophils % (A) 2 %; HCT 41.3 % (34.0-46.0); HGB 13.8 gm/dL (11.4-16.0); Lymphocytes # (A) 1.3 k/uL (1.0-4.8); Lymphocytes % (A) 25 %; MCH 32.2 pg (25.0-35.0); MCHC 33.4 g/dL (31.0-37.0); MCV 96.5 fL (80.0-100.0); Mean Platelet Volume 6.6; Monocytes # (A) 0.3 k/uL (0-1.0); Monocytes % (A) 5 %; Neutrophils # (A) 3.5 k/uL (1.3-7.7); Neutrophils % (A) 65 %; Platelet Count 208 k/uL (150-450); RBC 4.28 m/uL (3.80-5.40); RDW 12.4 % (11.5-15.5); WBC 5.4 k/uL (3.8-10.6)
[2019-06-18 09:57] LABS: Erythrocyte Sedimentation Rate 6 mm/hr (0-20)
[2019-06-18 12:05] LABS: % Iron Saturation 30.72 (12.00-45.00); African American GFR (CKD) 101.8 (60.0-200.0); Albumin 4.1 g/dL (3.80-4.90); Albumin/Globulin Ratio 2.56 (1.60-3.17); Anion Gap 6.2 mmol/L (4.00-12.00); BUN/Creat Ratio 22.5 Ratio (12.00-20.00); Calcium 8.9 mg/dL (8.7-10.3); Carbon Dioxide 26.8 mmol/L (21.6-31.8); Chol/HDL Ratio 3.08; Globulin 1.6 g/dL (1.6-3.3); Potassium 4.3 mmol/L (3.5-5.5); Total Bilirubin 0.6 mg/dL (0.3-1.2); Total Protein 5.7 g/dL (6.2-8.2)
[2019-06-18 12:14] LABS: Ferritin 92.4 ng/mL (10.0-291.0)
[2019-06-18 12:27] LABS: T4, Free (Free Thyroxine) 0.8 ng/dL (0.80-1.80)
== END | disposition home or self-care (01) ==
LOC: LABWHC1 07:19
PROVIDERS: ATTEND Nurse Practitioner Family
DX: E78.5 Hyperlipidemia, unspecified (principal); R53.83 Other fatigue
CPT/HCPCS: 36415; 80053; 80061; 82306; 82607; 82728; 83540; 83550; 84439; 84443; 85025; 85652

== ENCOUNTER → 2019-07-21 | Outpatient (CLI) | payer BC ==
--- NOTE | 2019-07-22 09:06 | MM ---
Reason for exam: screening (asymptomatic). Last mammogram was performed 1 year and 1 month ago. History: Family history of breast cancer in aunt at age 50. Physical Findings: A clinical breast exam by your physician is recommended on an annual basis and results should be correlated with mammographic findings. MG 3D Screening Mammo W/Cad Bilateral CC and MLO view(s) were taken. Prior study comparison: June 14, 2018, bilateral MG screening mammo w CAD. May 18, 2017, bilateral MG screening mammo w CAD. The breast tissue is heterogeneously dense. This may lower the sensitivity of mammography. There is no discrete abnormality. No significant changes when compared with prior studies. ASSESSMENT: Negative, BI-RAD 1 RECOMMENDATION: Routine screening mammogram of both breasts in 1 year.
== END | disposition home or self-care (01) ==
LOC: RADMAMWWP 07:00
PROVIDERS: ATTEND Obstetrics & Gynecology
DX: Z12.31 Encounter for screening mammogram for malignant neoplasm of breast (principal); Z80.3 Family history of malignant neoplasm of breast
CPT/HCPCS: 77063; 77067

== ENCOUNTER → 2020-04-02 | Outpatient (CLI) | payer BC ==
[2020-04-02 11:16] LABS: Anion Gap 6.4 mmol/L (4.00-12.00); Carbon Dioxide 27.6 mmol/L (21.6-31.8); Chol/HDL Ratio 4.41; LDL Cholesterol,Calculated 151.6 mg/dL (0.0-131.0); Non-African American GFR(CKD) 87.2 (60.0-200.0); Potassium 4.6 mmol/L (3.5-5.5); VLDL Calculation 32.4 mg/dL (5.00-40.00)
[2020-04-02 12:32] LABS: Hemoglobin A1C 5.6 % (4.0-6.0)
== END | disposition home or self-care (01) ==
LOC: LABWHC1 07:20
PROVIDERS: ATTEND Physician Assistant
DX: Z00.00 Encounter for general adult medical examination without abnormal findings (principal); R73.03 Prediabetes; Z13.1 Encounter for screening for diabetes mellitus
CPT/HCPCS: 36415; 80048; 80061; 83036; 84443

== ENCOUNTER → 2020-10-21 | Outpatient (CLI) | payer BC ==
--- NOTE | 2020-10-22 13:26 | MM ---
Reason for exam: screening (asymptomatic). Last mammogram was performed 1 year and 3 months ago. History: Family history of breast cancer in aunt at age 50. Physical Findings: A clinical breast exam by your physician is recommended on an annual basis and results should be correlated with mammographic findings. MG 3D Screening Mammo W/Cad Bilateral CC and MLO view(s) were taken. Prior study comparison: July 21, 2019, bilateral MG 3d screening mammo w/cad. June 14, 2018, bilateral MG screening mammo w CAD. There are scattered fibroglandular densities. There is no discrete abnormality. No significant changes when compared with prior studies. ASSESSMENT: Benign, BI-RAD 2 RECOMMENDATION: Routine screening mammogram of both breasts in 1 year.
== END | disposition home or self-care (01) ==
LOC: RADMAMWWP 08:42
PROVIDERS: ATTEND Obstetrics & Gynecology
DX: Z12.31 Encounter for screening mammogram for malignant neoplasm of breast (principal); Z80.3 Family history of malignant neoplasm of breast
CPT/HCPCS: 77063; 77067

== ENCOUNTER → 2020-12-09 | Outpatient (CLI) | payer BC ==
[2020-12-09 10:19] LABS: Basophils # (A) 0.1 k/uL (0-0.2); Basophils % (A) 1 %; Eosinophils # (A) 0.2 k/uL (0-0.7); Eosinophils % (A) 4 %; HCT 40.7 % (34.0-46.0); HGB 13.9 gm/dL (11.4-16.0); Lymphocytes # (A) 1.5 k/uL (1.0-4.8); Lymphocytes % (A) 30 %; MCH 32.1 pg (25.0-35.0); MCHC 34.1 g/dL (31.0-37.0); MCV 93.9 fL (80.0-100.0); Mean Platelet Volume 9.2; Monocytes # (A) 0.3 k/uL (0-1.0); Monocytes % (A) 6 %; Neutrophils # (A) 3.1 k/uL (1.3-7.7); Neutrophils % (A) 59 %; Platelet Count 205 k/uL (150-450); RBC 4.33 m/uL (3.80-5.40); RDW 12.8 % (11.5-15.5); WBC 5.2 k/uL (3.8-10.6)
== END | disposition home or self-care (01) ==
LOC: LABPAT 07:32
PROVIDERS: ATTEND Obstetrics & Gynecology
DX: Z01.818 Encounter for other preprocedural examination (principal); N85.7 Hematometra
CPT/HCPCS: 36415; 85025

== ENCOUNTER 2020-12-20 10:36 | Day surgery (SDC) | payer BC ==
[2020-12-15 15:59] VITALS: BMI 30.9
[~2020-12-20 10:36] MED LIST changes: -ALPRAZolam 0.25 MG TAB PO PRN; -ALPRAZolam 0.5 MG TAB PO PRN; -ASPIRIN 325 MG TAB PO STA; -ATORVASTATIN 80 MG TAB PO STA; +DEXAMETHASONE SOD PHOSPHATE 4 MG/ML 1 ML VIAL IV ONE; -HEPARIN SODIUM 1,000 UN/ML (10ML VL) IV ONE; +HYDROmorphone 0.5 MG/0.5 ML SYRINGE IVP PRN; -IOPAMIDOL-370 100ML BTL INJ ONE; +LACTATED RINGERS 1,000 ML IV SCH; +LIDOCAINE 1% (10MG/ML) FOR IV START INTRADERMA PRN; -LIDOCAINE 1% INJ 10MG/ML (20 ML MDV) SQ ONE; -MIDAZOLAM (PF) 2 MG/2 ML VIAL IVP ONE; -NITROGLYCERIN SL TABS 0.4 MG TAB SUBLINGUAL PRN; +ONDANSETRON 4 MG/2 ML VIAL IVP ONE; +Pre Op ABX Message 1 EACH MISC MISCELLANE ONE; -RX INFO: IV CONTRAST WAS GIVEN 1 EACH MISC MISCELLANE PRN; +SCOPOLAMINE 1.5MG/72HR PATCH TRANSDERM ONE; -SODIUM CHLORIDE 0.9% 1,000 ML IV SCH; -SODIUM CHLORIDE 0.9% 1,000 ML in EMPTY BAG 1 BAG IV ONE; -VERAPAMIL SYRINGE (5 MG/10 ML) INTRAARTER ONE
[2020-12-20 11:00] VITALS: RESP 16
[2020-12-20 11:12] LABS: Glucose,Whole Blood 98 mg/dL (75-99)
[2020-12-20] MEDS ORDERED: PROPOFOL 10 MG/ML 20 ML VIAL IV ONE (11:35)
[2020-12-20] MEDS ORDERED: fentaNYL (PF) 50 MCG/ML 2 ML AMP ONE (11:35)
[2020-12-20] MEDS ORDERED: KETOROLAC 15 MG/ML 1 ML VIAL ONE (11:35)
[2020-12-20] MEDS ORDERED: MIDAZOLAM 2 MG/2 ML VIAL ONE (11:35)
[2020-12-20] MEDS ORDERED: LIDOCAINE 1% INJ 10MG/ML (20 ML MDV) ONE (11:35)
[2020-12-20] MEDS ORDERED: SIMETHICONE 80 MG CHEWABLE PO PRN (12:10)
[2020-12-20] MEDS ORDERED: KETOROLAC 15 MG/ML 1 ML VIAL IVP PRN (12:10)
[2020-12-20] MEDS ORDERED: METOCLOPRAMIDE 5 MG/ML 2 ML VIAL IVP PRN (12:10)
[2020-12-20] MEDS ORDERED: diphenhydrAMINE 50 MG/ML 1 ML VIAL IVP PRN (12:10)
[2020-12-20] MEDS ORDERED: Acetaminophen-Codeine 300-30mg TAB PO PRN ×2 (12:10)
[2020-12-20] MEDS ORDERED: IBUPROFEN 600 MG TAB PO PRN (12:10)
[2020-12-20] MEDS ORDERED: ONDANSETRON 4 MG/2 ML VIAL IVP PRN (12:10)
[2020-12-20] MEDS ORDERED: LACTATED RINGERS 1,000 ML IV SCH (12:15)
--- NOTE | 2020-12-20 12:17 | P.OP ---
Date of Procedure: 12/20/20 Preoperative Diagnosis: #1. Increasing dysmenorrhea #2. Possible heme endometrial #3. Status post endometrial ablation Postoperative Diagnosis: Same Procedure(s) Performed: #1. Diagnostic hysteroscopy #2. Dilation and curettage Anesthesia: other (Gen. by face mask) Surgeon: Luis Alfredo Partida Estimated Blood Loss (ml): 5 IV fluids (ml): 500 Urine output (ml): 20 Pathology: other (Endometrial curettings) Condition: stable Disposition: PACU Operative Findings: Preoperative pelvic examination demonstrated a 4-5 week midplane mobile normal shaped uterus with normal adnexa bilaterally. Intraoperatively, the uterus sounded to 9 cm and I was able to appreciate some release of adhesions during sounding as well as dilation. Following dilation, a diagnostic hysteroscope was placed into the in the endometrial cavity and distended with sorbitol. The cavity did demonstrate some evidence of filmy scarring all around the periphery in the eye lateral tubal ostia could not be identified. After dilation, there was release of some brownish-colored fluid which was admixed with the sorbitol. Following hysteroscopy, the scope was set aside and a small sharp curette introduced into the cavity and thorough and circumferential curettage carried out with minimal tissue returned onto a Telfa placed in the vagina. The patient is a borderline to perhaps poor vaginal hysterectomy candidate and would best be treated with a da Esther approach should it become necessary. Description of Procedure: The patient was prepped and draped in usual fashion after general anesthesia was an instrument the anesthesiologist. A weighted speculum was placed and the bladder drained of approximately 20 mL of clear joanna urine. The anterior lip of the cervix was grasped with single-tooth tenaculum and the uterine sound introduced into the eye Garcia. There was some resistance at approximate 6 cm after which time the sound was advanced to 9 cm which was felt to be the length of the cavity. Serial dilation was then carried out with some minimal rotation of the dilators while within the endometrial cavity to break up any loculations. A small amount of brownish fluid was released during this process. The tyrone gnostic scope was placed into the endometrial cavity and distended with sorbitol with findings as noted above. The tubal ostia could not be seen secondary to scarring. After adequate hysteroscopy had been carried out, a small sharp curette was introduced into the cavity and the Telfa placed in the vagina. Thorough and circumferential curettage was carried out onto the Telfa in the vagina with minimal tissue returned. Assessment a blood loss for the case was 5 mL or less. There were no complications. All sponge, instrument, needle counts were correct. The patient tolerated the procedure well and proceeded to the recovery room in stable condition.
[2020-12-20 12:19] VITALS: TEMP 97.8
[2020-12-20 13:28] VITALS: BP 94/46; PULSE 67
== END 2020-12-20 13:41 | disposition home or self-care (01) ==
LOC: OR 10:36
PROVIDERS: ATTEND Obstetrics & Gynecology
DX: D25.1 Intramural leiomyoma of uterus (principal); G89.29 Other chronic pain; R10.2 Pelvic and perineal pain; E78.00 Pure hypercholesterolemia, unspecified; R73.03 Prediabetes; Z90.710 Acquired absence of both cervix and uterus; E78.5 Hyperlipidemia, unspecified; Z90.49 Acquired absence of other specified parts of digestive tract; I10 Essential (primary) hypertension; Z98.51 Tubal ligation status; Z98.890 Other specified postprocedural states; Z87.891 Personal history of nicotine dependence; Z79.899 Other long term (current) drug therapy; Z88.2 Allergy status to sulfonamides
CPT/HCPCS: 81025; 88305; 58558; J2250; J1100; J2405; J2001; J3010; J1885; J2704

== ENCOUNTER → 2022-03-01 | Outpatient (CLI) | payer BC ==
--- NOTE | 2022-03-02 08:43 | MM ---
Reason for Exam: Screening (asymptomatic). Last mammogram was performed 1 year(s) and 5 month(s) ago. Patient History: Menarche at age 12. First Full-Term at age 19. Maternal aunt had breast cancer, age 50. Risk Values: Missy 5 year model risk: 0.8%. NCI Lifetime model risk: 7.1%. Prior Study Comparison: 06/14/2018 Bilateral Screening Mammogram, [facility]. 07/21/2019 Bilateral Screening Mammogram, [facility]. 10/21/2020 Bilateral Screening Mammogram, [facility]. Tissue Density: The breast tissue is heterogeneously dense. This may lower the sensitivity of mammography. Findings: Analyzed By CAD. There is no suspicious group of microcalcifications or new suspicious mass in either breast. Overall Assessment: Negative, BI-RAD 1 Management: Screening Mammogram of both breasts. A clinical breast exam by your physician is recommended on an annual basis and results should be correlated with mammographic findings. Electronically signed and approved by: Vishnu Guzman M.D. Radiologis
== END | disposition home or self-care (01) ==
LOC: RADMAMWWP 07:00
PROVIDERS: ATTEND Family Medicine
DX: Z12.31 Encounter for screening mammogram for malignant neoplasm of breast (principal)
CPT/HCPCS: 77063; 77067

== ENCOUNTER → 2023-03-03 | Outpatient (CLI) | payer BC ==
[2023-03-03 23:13] LABS: Basophils # (A) 0.05 X 10*3/uL (0.00-0.10); Eosinophils # (A) 0.18 X 10*3/uL (0.04-0.35); Eosinophils % (A) 3.6 %; HCT 43.3 % (37.2-46.3); HGB 14.3 d/dL (12.0-15.0); Lymphocytes # (A) 1.55 X 10*3/uL (0.90-5.00); MCV 96.9 FL (80.0-97.0); Mean Platelet Volume 11.4 FL (9.5-12.2); Monocytes # (A) 0.33 X 10*3/uL (0.20-1.00); Monocytes % (A) 6.6 %; NRBC Per 100 WBC 0 X 10*3/uL (0.00-0.01); Neutrophils # (A) 2.88 X 10*3/uL (1.80-7.70); Neutrophils % (A) 57.6 %; Platelet Count 158 X 10*3/uL (140-440); RBC 4.47 X 10*6/uL (4.10-5.20); RDW 12.8 % (11.5-14.5)
[2023-03-04] LABS: ALT 25 U/L (8-44); AST 19 U/L (13-35); Albumin 4.2 d/dL (3.8-4.9); Albumin/Globulin Ratio 2.47 Ratio (1.60-3.17); Alkaline Phosphatase 59 U/L (41-126); BUN/Creat Ratio 25.75 Ratio (12.00-20.00); Blood Urea Nitrogen 20.6 mg/dL (9.0-27.0); Calcium 9.5 mg/dL (8.7-10.3); Carbon Dioxide 27.8 mmol/L (21.6-31.8); Chloride 105 mmol/L (96-109); Chol/HDL Ratio 2.75 Ratio; Globulin 1.7 d/dL (1.6-3.3); Glucose 110 mg/dL (70-110); LDL Cholesterol,Calculated 83.1 mg/dL (0.0-131.0); Potassium 5.2 mmol/L (3.5-5.5); Sodium 140 mmol/L (135-145); Total Bilirubin 0.5 mg/dL (0.3-1.2); Total Protein 5.9 d/dL (6.2-8.2)
== END | disposition home or self-care (01) ==
LOC: LABWHC1 08:17
PROVIDERS: ATTEND Family Medicine
DX: Z00.00 Encounter for general adult medical examination without abnormal findings (principal); E55.9 Vitamin D deficiency, unspecified
CPT/HCPCS: 36415; 80053; 80061; 82306; 84443; 85025

== ENCOUNTER → 2023-08-17 | Outpatient (CLI) | payer BC ==
--- NOTE | 2023-08-22 12:31 | MM ---
Reason for Exam: Screening (asymptomatic). Last mammogram was performed 1 year(s) and 5 month(s) ago. Patient History: Menarche at age 12. First Full-Term at age 19. Postmenopausal. Maternal aunt had breast cancer, age 50. Risk Values: Missy 5 year model risk: 0.8%. NCI Lifetime model risk: 6.9%. Prior Study Comparison: 07/21/2019 Bilateral Screening Mammogram, [facility]. 10/21/2020 Bilateral Screening Mammogram, [facility]. 03/01/2022 Bilateral MG 3D screening mammo w/cad, [facility]. Tissue Density: There are scattered fibroglandular densities. Findings: Analyzed By CAD. There is no suspicious group of microcalcifications or new suspicious mass. Overall Assessment: Negative, BI-RAD 1 Management: Screening Mammogram of both breasts in [address] [facility] will attempt to contact patient to return for supplemental views and ultrasound if indicated. Patient should continue monthly self-breast exams. A clinical breast exam by your physician is recommended on an annual basis. This exam should not preclude additional follow-up of suspicious palpable abnormalities. Note on Missy scores and lifetime risk: 1. A Missy score greater than 3% is considered moderate risk. If this is the case, consider specialist referral to assess eligibility for a risk reducing agent. 2. If overall lifetime risk for the development of breast cancer is 20% or higher, the patient may qualify for future screening with alternating mammogram and breast MRI. Electronically signed and approved by: Valerio Roberts DO
== END | disposition home or self-care (01) ==
LOC: RADMAMWWP 14:37
PROVIDERS: ATTEND Family Medicine
DX: Z12.31 Encounter for screening mammogram for malignant neoplasm of breast (principal); Z78.0 Asymptomatic menopausal state; Z80.3 Family history of malignant neoplasm of breast
CPT/HCPCS: 77063; 77067

== ENCOUNTER → 2023-09-21 | Outpatient (CLI) | payer BC ==
[2023-09-21 11:18] LABS: Basophils # (A) 0.06 X 10*3/uL (0.00-0.10); Basophils % (A) 0.9 %; Eosinophils # (A) 0.29 X 10*3/uL (0.04-0.35); Eosinophils % (A) 4.1 %; HCT 39.8 % (37.2-46.3); HGB 13.4 g/dL (12.0-15.0); Lymphocytes # (A) 2.44 X 10*3/uL (0.90-5.00); Lymphocytes % (A) 34.8 %; MCH 31.8 pg (27.0-32.0); MCHC 33.7 g/dL (32.0-37.0); MCV 94.3 FL (80.0-97.0); Monocytes # (A) 0.39 X 10*3/uL (0.20-1.00); Monocytes % (A) 5.6 %; NRBC Per 100 WBC 0 X 10*3/uL (0.00-0.01); Neutrophils % (A) 54.2 %; Platelet Count 204 X 10*3/uL (140-440); RBC 4.22 X 10*6/uL (4.10-5.20); WBC 7.01 X 10*3/uL (4.50-10.00)
[2023-09-21 11:29] LABS: ALT 26 U/L (8-44); AST 20 U/L (13-35); Albumin/Globulin Ratio 2.35 Ratio (1.60-3.17); Alkaline Phosphatase 50 U/L (41-126); BUN/Creat Ratio 22.62 Ratio (12.00-20.00); Blood Urea Nitrogen 18.1 mg/dL (9.0-27.0); Calcium 8.9 mg/dL (8.7-10.3); Carbon Dioxide 27.3 mmol/L (21.6-31.8); Chloride 104 mmol/L (96-109); Chol/HDL Ratio 3.07 Ratio; Globulin 1.7 g/dL (1.6-3.3); Glucose 91 mg/dL (70-110); LDL Cholesterol,Calculated 86.4 mg/dL (0.0-131.0); Sodium 140 mmol/L (135-145); Total Bilirubin 0.7 mg/dL (0.3-1.2); Total Protein 5.7 g/dL (6.2-8.2)
== END | disposition home or self-care (01) ==
LOC: LABWHC1 07:22
PROVIDERS: ATTEND Family Medicine
DX: E78.5 Hyperlipidemia, unspecified (principal)
CPT/HCPCS: 36415; 80053; 80061; 85025

== ENCOUNTER → 2024-05-31 | Outpatient (CLI) | payer BC ==
[2024-05-31 13:02] LABS: Hepatitis A Antibody IgM Nonreactive (Nonreactive); Hepatitis B Core IgM Nonreactive (Nonreactive); Hepatitis B Surface Antigen Nonreactive (Nonreactive); Hepatitis C IgG Antibody Nonreactive (Nonreactive)
[2024-05-31 13:09] LABS: Basophils # (A) 0.04 X 10*3/uL (0.00-0.10); Basophils % (A) 0.6 %; Eosinophils # (A) 0.32 X 10*3/uL (0.04-0.35); Eosinophils % (A) 5.2 %; HGB 13.8 g/dL (12.0-15.0); Lymphocytes % (A) 24.4 %; MCH 32.5 pg (27.0-32.0); MCHC 33.7 g/dL (32.0-37.0); MCV 96.7 FL (80.0-97.0); Mean Platelet Volume 11.4 FL (9.5-12.2); Monocytes # (A) 0.42 X 10*3/uL (0.20-1.00); Monocytes % (A) 6.8 %; NRBC Per 100 WBC 0 X 10*3/uL (0.00-0.01); Neutrophils # (A) 3.86 X 10*3/uL (1.80-7.70); Neutrophils % (A) 62.7 %; Platelet Count 185 X 10*3/uL (140-440); RBC 4.24 X 10*6/uL (4.10-5.20); RDW 13.2 % (11.5-14.5); WBC 6.16 X 10*3/uL (4.50-10.00)
[2024-05-31 13:13] LABS: ALT 33 U/L (8-44); AST 21 U/L (13-35); Albumin 4.1 g/dL (3.8-4.9); Albumin/Globulin Ratio 2.41 Ratio (1.60-3.17); Alkaline Phosphatase 61 U/L (41-126); BUN/Creat Ratio 27.12 Ratio (12.00-20.00); Blood Urea Nitrogen 21.7 mg/dL (9.0-27.0); Calcium 9.1 mg/dL (8.7-10.3); Carbon Dioxide 24.2 mmol/L (21.6-31.8); Chloride 107 mmol/L (96-109); Globulin 1.7 g/dL (1.6-3.3); Glucose 104 mg/dL (70-110); LDL Cholesterol,Calculated 88.9 mg/dL (0.0-131.0); Potassium 4.8 mmol/L (3.5-5.5); Sodium 140 mmol/L (135-145); Total Bilirubin 0.7 mg/dL (0.3-1.2); Total Protein 5.8 g/dL (6.2-8.2); VLDL Calculation 12.64 mg/dL (5.00-40.00)
[2024-06-02 16:29] LABS: HSV I IgG Interp Negative (Negative); HSV II IgG Interp Negative (Negative)
[2024-06-02 17:06] LABS: HIV 2 AB Non-Reactive (Non-Reactive); HIV AB P24 Non-Reactive (Non-Reactive); HIV P24 AG Non-Reactive (Non-Reactive)
== END | disposition home or self-care (01) ==
LOC: LABWHC1 08:31
PROVIDERS: ATTEND Nurse Practitioner Family
DX: Z00.01 Encounter for general adult medical examination with abnormal findings (principal); Z11.3 Encounter for screening for infections with a predominantly sexual mode of transmission; E55.9 Vitamin D deficiency, unspecified; E78.5 Hyperlipidemia, unspecified
CPT/HCPCS: 36415; 80053; 80061; 80074; 82306; 83036; 84439; 84443; 85025; 86695; 86696; 86780; 87390

== ENCOUNTER → 2024-09-09 | Outpatient (CLI) | payer BC ==
--- NOTE | 2024-09-09 13:42 | MM ---
Reason for Exam: Screening (asymptomatic). Last mammogram was performed 1 year(s) and 1 month(s) ago. Patient History: Menarche at age 12. First Full-Term at age 19. Postmenopausal. Maternal aunt had breast cancer, age 50. Risk Values: Missy 5 year model risk: 0.9%. NCI Lifetime model risk: 6.8%. Prior Study Comparison: 10/21/2020 Bilateral Screening Mammogram, [facility]. 03/01/2022 Bilateral MG 3D screening mammo w/cad, [facility]. 08/17/2023 Bilateral MG 3D screening mammo w/cad, [facility]. Tissue Density: There are scattered areas of fibroglandular density. Findings: Analyzed By CAD. There is no suspicious group of microcalcifications or new suspicious mass in either breast. Overall Assessment: Negative, BI-RAD 1 Management: Screening Mammogram of both breasts in 1 year. . Patient should continue monthly self-breast exams. A clinical breast exam by your physician is recommended on an annual basis. This exam should not preclude additional follow-up of suspicious palpable abnormalities. Note on Msisy scores and lifetime risk: 1. A Missy score greater than 3% is considered moderate risk. If this is the case, consider specialist referral to assess eligibility for a risk reducing agent. 2. If overall lifetime risk for the development of breast cancer is 20% or higher, the patient may qualify for future screening with alternating mammogram and breast MRI. [facility], , 09/09/2024 1:39 PM. Electronically signed and approved by: Chase Ya M.D.
== END | disposition home or self-care (01) ==
LOC: RADMAMWWP 12:59
PROVIDERS: ATTEND Family Medicine
DX: Z12.31 Encounter for screening mammogram for malignant neoplasm of breast (principal); Z78.0 Asymptomatic menopausal state; Z80.3 Family history of malignant neoplasm of breast; R92.323 Mammographic fibroglandular density, bilateral breasts
CPT/HCPCS: 77063; 77067